=== PATIENT | female | born 1955 | race Caucasian/White ===

== ENCOUNTER 2024-11-15 13:32 | Outpatient (CLI) | payer MEDICARE | END 2024-11-15 13:33 | disposition home or self-care (01) | LOC: BICMAMMO 13:32 | PROVIDERS: ATTEND Obstetrics & Gynecology | DX: Z78.0 Asymptomatic menopausal state (principal); M85.859 Other specified disorders of bone density and structure, unspecified thigh | CPT/HCPCS: 77080 ==